=== PATIENT | female | born 1955 | race African-American/Black ===

== ENCOUNTER 2016-04-16 06:44 | Emergency (ER) | payer OTHER ==
[~2016-04-16] VITALS: Ht 180.3 cm; Wt 116.3 kg
[2016-04-16 07:22] VITALS: BP 147/70
== END 2016-04-16 08:16 | disposition home or self-care (01) ==
LOC: ER 06:44
DX: J02.9 Acute pharyngitis, unspecified (principal); M19.90 Unspecified osteoarthritis, unspecified site; J45.909 Unspecified asthma, uncomplicated; I10 Essential (primary) hypertension; Z88.6 Allergy status to analgesic agent

== ENCOUNTER 2016-05-08 06:57 | Emergency (ER) | payer OTHER ==
[~2016-05-08] VITALS: Ht 180.3 cm; Wt 115.2 kg
[2016-05-08 08:01] VITALS: BP 136/64
[2016-05-08] MEDS ORDERED: cefTRIAXone SOD 1,000 MG VL IM ONE (08:30)
[2016-05-08] MEDS ORDERED: LIDOCAINE 1% HCL (LOCAL ANESTH.) INJ 20ML MDV IJ ONE (08:30)
== END 2016-05-08 09:33 | disposition home or self-care (01) ==
LOC: ER 06:57
DX: J02.9 Acute pharyngitis, unspecified (principal); I10 Essential (primary) hypertension; J44.9 Chronic obstructive pulmonary disease, unspecified; M19.90 Unspecified osteoarthritis, unspecified site; J45.909 Unspecified asthma, uncomplicated; Z88.6 Allergy status to analgesic agent
CPT/HCPCS: 96372; 99283; J0696; J2001

== ENCOUNTER 2016-08-01 13:46 | Emergency (ER) | payer OTHER ==
[~2016-08-01] VITALS: Ht 180.3 cm; Wt 106.6 kg
[2016-08-01 18:38] VITALS: BP 100/63
== END 2016-08-01 18:57 | disposition home or self-care (01) ==
LOC: ER 13:46
DX: R21 Rash and other nonspecific skin eruption (principal); M19.90 Unspecified osteoarthritis, unspecified site; J44.9 Chronic obstructive pulmonary disease, unspecified; I10 Essential (primary) hypertension; Z88.8 Allergy status to other drugs, medicaments and biological substances

== ENCOUNTER 2016-08-15 06:42 | Emergency (ER) | payer OTHER ==
[~2016-08-15] VITALS: Ht 180.3 cm; Wt 114.8 kg
[2016-08-15 06:52] VITALS: BP 156/78
[2016-08-15] MEDS ORDERED: cefTRIAXone SOD 1,000 MG VL IM ONE (09:45)
[2016-08-15] MEDS ORDERED: methylPREDNISolone SOD SUCC 125 MG/2 ML VL IM ONE (09:45)
== END 2016-08-15 09:57 | disposition home or self-care (01) ==
LOC: ER 06:42
DX: J45.909 Unspecified asthma, uncomplicated (principal); J03.90 Acute tonsillitis, unspecified; M19.90 Unspecified osteoarthritis, unspecified site; J44.9 Chronic obstructive pulmonary disease, unspecified; I10 Essential (primary) hypertension
CPT/HCPCS: 71020; 96372; 99284; J0696; J2930

== ENCOUNTER 2016-09-10 06:32 | Emergency (ER) | payer OTHER ==
[~2016-09-10] VITALS: Ht 180.3 cm; Wt 112.9 kg
[2016-09-10 06:38] VITALS: BP 154/81
[2016-09-10] MEDS ORDERED: methylPREDNISolone SOD SUCC 125 MG/2 ML VL IM ONE (07:00)
[2016-09-10] MEDS ORDERED: methylPREDNISolone SOD SUCC 125 MG/2 ML VL ONE (07:03)
== END 2016-09-10 07:24 | disposition home or self-care (01) ==
LOC: ER 06:32
DX: R21 Rash and other nonspecific skin eruption (principal); J45.909 Unspecified asthma, uncomplicated; J44.9 Chronic obstructive pulmonary disease, unspecified; I10 Essential (primary) hypertension; M19.90 Unspecified osteoarthritis, unspecified site; Z88.6 Allergy status to analgesic agent
CPT/HCPCS: 96372; 99283; J2930

== ENCOUNTER 2017-07-01 05:39 | Emergency (ER) | payer OTHER ==
[~2017-07-01] VITALS: Ht 180.3 cm; Wt 113.4 kg
[2017-07-01] MEDS ORDERED: IPRATROPIUM BROM 0.5 MG/2.5ML INH SOL HHN ONE (06:15)
[2017-07-01] MEDS ORDERED: TERBUTALINE SULFATE 1 MG/ML 1ML VIAL SC ONE (06:15)
[2017-07-01] MEDS ORDERED: SODIUM CHLORIDE 0.9% 500 ML IV ONE (06:15)
[2017-07-01] MEDS ORDERED: ALBUTEROL SULF 2.5 MG/0.5ML(0.5%) NEB SOLN HHN ONE (06:15)
[2017-07-01] MEDS ORDERED: methylPREDNISolone SOD SUCC 125 MG/2 ML VL IV ONE (06:15)
[2017-07-01 06:56] LABS: Urine WBC None Seen /hpf (0 - 5)
[2017-07-01 07:10] LABS: Basophils # (auto) 0.1 uL; Basophils % (auto) 2.2 % (0.0-2.0); Eosinophils # (auto) 0.3 uL; Eosinophils % (auto) 4.8 % (0.0-7.0); Hematocrit 36.5 % (36.0-46.0); Hemoglobin 11.9 g/dL (12.2-16.2); Lymphocytes % (auto) 28.7 % (10.0-50.0); Mean Corpuscular Hgb Conc. 32.7 g/dL (32.0-36.0); Mean Corpuscular Volume 85.7 fL (80.0-100.0); Monocytes # (auto) 0.7 uL; Monocytes % (auto) 10.2 % (0.0-12.0); Neutrophils # (auto) 3.7 uL; Neutrophils % (auto) 54.1 % (37.0-80.0); Nucleated Red Blood Cells % 0.1 %; Platelet Count (auto) 215 10^3/uL (140-450); Red Blood Cells 4.26 10^6/uL (4.0-5.20); Red Cell Distribution Width 14.8 % (11.8-14.3); White Blood Cell 6.9 10^3/uL (4.4-10.8)
[2017-07-01 07:13] LABS: Albumin 2.8 g/dL (3.4-5.0); Anion Gap 7 (5-15); Blood Urea Nitrogen 12 mg/dL (7-18); Calcium 8.3 mg/dL (8.5-10.1); Carbon Dioxide 25 mmol/L (21-32); Chloride 109 mmol/L (98-107); Glucose 85 mg/dL (74-106); Potassium 3.9 mmol/L (3.5-5.1); Sodium 141 mmol/L (136-145)
[2017-07-01 07:13] LABS: Urine Bacteria NONE SEEN /hpf (None Seen); Urine Blood Negative /uL (Negative); Urine Specific Gravity 1.011 (1.001-1.035)
[2017-07-01 07:16] LABS: Alanine Aminotransferase 18 U/L (13-56); Aspartate Aminotransferase 13 U/L (15-37); BUN/Creatinine Ratio 14.6; GFR African American 91 mL/min; GFR Non-African American 75 mL/min
[2017-07-01 07:21] LABS: Alkaline Phosphatase 72 U/L (45-117); Bilirubin, Total 0.5 mg/dL (0.2-1.0); Total Protein 7.1 g/dL (6.4-8.2)
[2017-07-01 07:23] VITALS: BP 139/71
[2017-07-01 07:23] LABS: INR 0.92 (0.9-1.15); Partial Thromboplastin Time 27.7 sec (23.78-33.04); Prothrombin Time 9.9 sec (9.27-12.13)
== END 2017-07-01 08:06 | disposition home or self-care (01) ==
LOC: ER 05:39
DX: J45.901 Unspecified asthma with (acute) exacerbation (principal); M19.90 Unspecified osteoarthritis, unspecified site; J44.9 Chronic obstructive pulmonary disease, unspecified; I10 Essential (primary) hypertension; E66.01 Morbid (severe) obesity due to excess calories; Z87.891 Personal history of nicotine dependence; Z68.34 Body mass index [BMI] 34.0-34.9, adult
CPT/HCPCS: 36415; 71045; 80053; 81001; 83880; 84484; 85025; 85379; 85610; 85730; 94640; 94761; 96372; 96374; 99285; J2930; J3105; 93005

== ENCOUNTER 2018-02-07 06:04 | Emergency (ER) | payer OTHER ==
[~2018-02-07] VITALS: Ht 180.3 cm; Wt 113.1 kg
[2018-02-07 08:56] VITALS: BP 141/85
[2018-02-07] MEDS ORDERED: LACTULOSE 20Gm/30ML SOLN PO ONE (09:15)
== END 2018-02-07 09:25 | disposition home or self-care (01) ==
LOC: ER 06:11
DX: K59.00 Constipation, unspecified (principal); N28.1 Cyst of kidney, acquired; M19.90 Unspecified osteoarthritis, unspecified site; J44.9 Chronic obstructive pulmonary disease, unspecified; I10 Essential (primary) hypertension; Z87.891 Personal history of nicotine dependence; Z88.8 Allergy status to other drugs, medicaments and biological substances
CPT/HCPCS: 74018; 74176

== ENCOUNTER 2018-05-21 06:13 | Emergency (ER) | payer OTHER ==
[~2018-05-21] VITALS: Ht 180.3 cm; Wt 113.4 kg
[2018-05-21 07:24] VITALS: BP 154/75
[2018-05-21] MEDS ORDERED: LIDOCAINE 1% HCL (LOCAL ANESTH.) INJ 20ML MDV IJ ONE (07:45)
[2018-05-21] MEDS ORDERED: cefTRIAXone SOD 1,000 MG VL IM ONE (07:45)
[2018-05-21] MEDS ORDERED: methylPREDNISolone SOD SUCC 125 MG/2 ML VL IM ONE (07:45)
[2018-05-21] MEDS ORDERED: IPRATROPIUM BROM 0.5 MG/2.5ML INH SOL NEB ONE ×2 (07:45→08:00)
[2018-05-21] MEDS ORDERED: ALBUTEROL SULF 2.5 MG/0.5ML(0.5%) NEB SOLN NEB ONE ×2 (07:45→08:00)
== END 2018-05-21 08:40 | disposition home or self-care (01) ==
LOC: ER 06:13
DX: J44.1 Chronic obstructive pulmonary disease with (acute) exacerbation (principal); J20.9 Acute bronchitis, unspecified; J03.90 Acute tonsillitis, unspecified; M19.90 Unspecified osteoarthritis, unspecified site; I10 Essential (primary) hypertension; F17.200 Nicotine dependence, unspecified, uncomplicated
CPT/HCPCS: 71046; 94640; 96372; 99284; J0696; J2001; J2930; J7611; J7644

== ENCOUNTER 2018-09-30 05:44 | Emergency (ER) | payer OTHER ==
[~2018-09-30] VITALS: Ht 180.3 cm; Wt 113.4 kg
[2018-09-30 06:11] VITALS: BP 136/62
[2018-09-30] MEDS ORDERED: ALBUTEROL SULF 2.5 MG/0.5ML(0.5%) NEB SOLN NEB ONE (06:30)
[2018-09-30] MEDS ORDERED: IPRATROPIUM BROM 0.5 MG/2.5ML INH SOL NEB ONE (06:30)
[2018-09-30] MEDS ORDERED: methylPREDNISolone SOD SUCC 125 MG/2 ML VL IM ONE (07:00)
== END 2018-09-30 07:37 | disposition home or self-care (01) ==
LOC: ER 05:47
DX: J45.909 Unspecified asthma, uncomplicated (principal); F41.9 Anxiety disorder, unspecified; I10 Essential (primary) hypertension; Z87.891 Personal history of nicotine dependence
CPT/HCPCS: 71046; 94640; 96372; 99283; J2930; J7611; J7644; 94644

== ENCOUNTER 2018-12-27 06:58 | Emergency (ER) | payer OTHER ==
[~2018-12-27] VITALS: Ht 180.3 cm; Wt 113.4 kg
[2018-12-27] MEDS ORDERED: DexAMETHasone SOD PHOS 10MG/1ML VIAL INJ IM ONE (09:00)
[2018-12-27] MEDS ORDERED: ALBUTEROL SULF 2.5 MG/0.5ML(0.5%) NEB SOLN NEB ONE (09:00)
[2018-12-27] MEDS ORDERED: IPRATROPIUM BROM 0.5 MG/2.5ML INH SOL NEB ONE (09:00)
[2018-12-27 09:09] VITALS: BP 121/65
== END 2018-12-27 10:32 | disposition home or self-care (01) ==
LOC: ER 06:58
DX: J45.901 Unspecified asthma with (acute) exacerbation (principal); J44.9 Chronic obstructive pulmonary disease, unspecified; I10 Essential (primary) hypertension; Z87.891 Personal history of nicotine dependence
CPT/HCPCS: 71046; 93005; 94640; 96372; 99283; J1100; J7611; J7644

== ENCOUNTER 2019-01-12 05:46 | Emergency (ER) | payer OTHER ==
[~2019-01-12] VITALS: Ht 180.3 cm; Wt 115.2 kg
[2019-01-12] MEDS ORDERED: ALBUTEROL SULF 2.5 MG/0.5ML(0.5%) NEB SOLN HHN STA (06:02)
[2019-01-12] MEDS ORDERED: IPRATROPIUM BROM 0.5 MG/2.5ML INH SOL NEB ONE ×3 (06:15→07:30)
[2019-01-12] MEDS ORDERED: DexAMETHasone SOD PHOS 10MG/1ML VIAL INJ IM ONE (07:30)
[2019-01-12] MEDS ORDERED: ALBUTEROL SULF 2.5 MG/0.5ML(0.5%) NEB SOLN NEB ONE ×2 (07:30)
[2019-01-12 08:16] VITALS: BP 141/75
== END 2019-01-12 08:39 | disposition home or self-care (01) ==
LOC: ER 05:46
DX: J45.901 Unspecified asthma with (acute) exacerbation (principal); I10 Essential (primary) hypertension; R51 Headache; Z87.891 Personal history of nicotine dependence
CPT/HCPCS: 71046; 94640; 94644; 96372; 99285; J1100; J7611; J7644

== ENCOUNTER 2019-03-08 07:36 | Emergency (ER) | payer OTHER ==
[~2019-03-08] VITALS: Ht 180.3 cm; Wt 117.9 kg
[2019-03-08 09:03] LABS: Basophils # (auto) 0.2 uL; Basophils % (auto) 2.5 % (0.0-2.0); Eosinophils # (auto) 0.5 uL; Eosinophils % (auto) 6.9 % (0.0-7.0); Hematocrit 39.8 % (36.0-46.0); Hemoglobin 12.9 g/dL (12.2-16.2); Lymphocytes # (auto) 2.2 uL; Lymphocytes % (auto) 28.8 % (10.0-50.0); Mean Corpuscular Hemoglobin 27.9 pg (28.0-32.0); Mean Corpuscular Hgb Conc. 32.3 g/dL (32.0-36.0); Mean Corpuscular Volume 86.4 fL (80.0-100.0); Monocytes # (auto) 0.6 uL; Monocytes % (auto) 7.8 % (0.0-12.0); Nucleated Red Blood Cells % 0.1 %; Platelet Count (auto) 224 10^3/uL (140-450); Red Blood Cells 4.61 10^6/uL (4.0-5.20); Red Cell Distribution Width 14.6 % (11.8-14.3); White Blood Cell 7.5 10^3/uL (4.4-10.8)
[2019-03-08 09:22] LABS: Albumin 3.5 g/dL (3.4-5.0); Anion Gap 3 (5-15); Blood Urea Nitrogen 11 mg/dL (7-18); Calcium 8.9 mg/dL (8.5-10.1); Carbon Dioxide 29 mmol/L (21-32); Chloride 108 mmol/L (98-107); Glucose 94 mg/dL (74-106); Potassium 3.9 mmol/L (3.5-5.1); Sodium 140 mmol/L (136-145)
[2019-03-08 09:28] LABS: Alanine Aminotransferase 18 U/L (13-56); Alkaline Phosphatase 72 U/L (45-117); Aspartate Aminotransferase 17 U/L (15-37); BUN/Creatinine Ratio 12.6; Bilirubin, Total 0.7 mg/dL (0.2-1.0); GFR African American 84 mL/min; GFR Non-African American 70 mL/min; Total Protein 7.7 g/dL (6.4-8.2)
[2019-03-08 10:05] VITALS: BP 114/48
[2019-03-08 10:14] LABS: Urine Bacteria FEW /hpf (None Seen); Urine Blood Negative /uL (Negative); Urine WBC 1 /hpf (0 - 5)
== END 2019-03-08 11:58 | disposition home or self-care (01) ==
LOC: ER 07:36
DX: J20.9 Acute bronchitis, unspecified (principal); J44.9 Chronic obstructive pulmonary disease, unspecified; I10 Essential (primary) hypertension; F41.9 Anxiety disorder, unspecified; E78.5 Hyperlipidemia, unspecified; Z87.891 Personal history of nicotine dependence; Z88.6 Allergy status to analgesic agent
CPT/HCPCS: 36415; 71046; 80053; 81001; 83735; 84484; 85025; 93005

== ENCOUNTER 2019-03-24 06:03 | Emergency (ER) | payer OTHER ==
[~2019-03-24] VITALS: Ht 180.3 cm; Wt 118.0 kg
[2019-03-24 07:34] VITALS: BP 137/77
[2019-03-24] MEDS ORDERED: IPRATROPIUM BROM 0.5 MG/2.5ML INH SOL NEB ONE (08:00)
[2019-03-24] MEDS ORDERED: ALBUTEROL SULF 2.5 MG/0.5ML(0.5%) NEB SOLN NEB ONE (08:00)
[2019-03-24] MEDS ORDERED: cefTRIAXone SOD 1,000 MG VL IM ONE (08:00)
[2019-03-24] MEDS ORDERED: methylPREDNISolone SOD SUCC 125 MG/2 ML VL IM ONE (08:00)
== END 2019-03-24 08:30 | disposition home or self-care (01) ==
LOC: ER 06:03
DX: J03.90 Acute tonsillitis, unspecified (principal); J44.9 Chronic obstructive pulmonary disease, unspecified; M19.90 Unspecified osteoarthritis, unspecified site; E78.5 Hyperlipidemia, unspecified; I10 Essential (primary) hypertension
CPT/HCPCS: 94640; 96372; 99284; J0696; J2930; J7611; J7644

== ENCOUNTER 2024-02-21 09:13 | Emergency (ER) | payer OTHER, MEDICAID ==
[~2024-02-21] VITALS: Ht 180.3 cm; Wt 106.0 kg
[2024-02-21 09:20] VITALS: BP 152/61; PULSE 66; RESP 16; TEMP 98.1; O2SAT 98
--- NOTE | 2024-02-21 09:46 | DVH ---
CHEST RADIOGRAPH Indication: COUGH Technique: Frontal and lateral view of the chest was obtained Comparison: CHEST TWO VIEWS ROUTINE on DOS: 03/08/19 FINDINGS: Lines and Tubes: None Lungs: Clear Pleura: No effusion. No pneumothorax. Cardiomediastinal contours: Unremarkable Bones: Unremarkable IMPRESSION: No evidence of acute disease.
--- NOTE | 2024-02-21 10:02 | ED.PDOC ---
SOB-HPI HPI Comments A 69-YEAR-OLD FEMALE PRESENTS WITH A CHIEF COMPLAINT OF FLU-LIKE SYMPTOMS X 1 WEEK. PATIENT STATES THAT SHE IS EXPERIENCING COUGH, THROAT PAIN, AND NASAL CONGESTION. PATIENT REPORTS THAT SHE IS COUGHING UP GREEN SPUTUM. PATIENT DENIES ANY SOB. PATIENT HAS COPD. NO OTHER SYMPTOMS OR MODIFYING FACTORS PRESENT AT THIS TIME. PT IS ALERT, ORIENTATION X4 WITH NORMAL GAIT. Chief Complaint: Flu like Time Seen by MD: 09:54 Primary Care Provider: CASPER Sanchez notes: Nurses Notes, Medications, Allergies Information Source: Patient Mode of Arrival: Ambulatory Severity: Moderate Timing: Days Duration: Since onset Context: At Rest PE Risk Factors: None History of: COPD Prehospital treatment: None Modifying Factors: Nothing Associated Signs and Symptoms: Cough, Nasal Congestion, Sore Throat If cough with SOB: Productive, Green Past Medical History PAST MEDICAL HISTORY: Anxiety, Arthritis, Asthma, COPD, High Lipids, HTN Surgical History: Denies all surgeries MALTED MILK MASHER History: No Pertinent MALTED MILK MASHER History Family History Family History: Reviewed,noncontributory to illness Social History Smoker: Non-Smoker, Quit Greater Than 1 Year Alcohol: Rarely Drugs: Denies Drug Use Lives In: Home Constitutional: denies: chills, diaphoresis, fatigue, fever, malaise, sweats, weakness, others EENTM: reports: nose congestion, throat pain, throat swelling, voice changes; denies: blurred vision, double vision, ear bleeding, ear discharge, ear drainage, ear pain, ear ringing, eye pain, eye redness, hearing loss, mouth pain, mouth swelling, nasal discharge, nose bleeding, nose pain, photophobia, tearing, others Respiratory: reports: cough; denies: hemoptysis, orthopnea, SOB at rest, shortness of breath, SOB with excertion, stridor, wheezing, others Cardiovascular: denies: chest pain, dizzy spells, diaphoresis, Dyspnea on exertion, edema, irregular heart beat, left arm pain, lightheadedness, palpitations, PND, syncope, others Gastrointestinal: denies: abdomen distended, abdominal pain, blood streaked bowels, constipated, diarrhea, dysphagia, difficulty swallowing, hematemesis, melena, nausea, poor appetite, poor fluid intake, rectal bleeding, rectal pain, vomiting, others Genitourinary: denies: abnormal vagina bleeding, burning, dyspareunia, dysuria, flank pain, frequency, hematuria, incontinence, pain, , vagina discharge, urgency, others Neurological: denies: dizziness, fainting, headache, left sided numbness, left sided weakness, numbness, paresthesia, pre-existing deficit, right sided numbness, right sided weakness, seizure, speech problems, tingling, tremors, weakness, others Musculoskeletal: denies: back pain, gout, joint pain, joint swelling, muscle pain, muscle stiffness, neck pain, others Integumetry: denies: bruises, change in color, change in hair/nails, dryness, laceration, lesions, lumps, rash, wounds, others Allergic/Immunocompromised: denies: Difficulty Healing, Frequent Infections, Hives, Itching, others Hematologic/Lymphatic: denies: anemia, blood clots, easy bleeding, easy bruising, swollen glands, others Endocrine: denies: excessive hunger, excessive sweating, excessive thirst, excessive urination, flushing, intolerance to cold, intolerance to heat, unexplained weight gain, unexplained weight loss, others Psychiatric: denies: anxiety, bipolar disorder, depression, hopeless, panic disorder, schizophrenia, sleepless, suicidal, others All Other Systems: Reviewed and Negative Physical Exam General Appearance: No Apparent Distress, Normal HEENT: PERRL/EOMI, Pharyngeal Erythema (TONSILLAR SWELLING, NO EXUDATES. ), TMs Normal Neck: Full Range of Motion, Non-Tender, Normal, Normal Inspection Respiratory: Chest Non-Tender, Expiration, No Accessory Muscle Use, No Respiratory Distress, Rhonchi Cardiovascular: No Edema, No JVD, No Murmur, No Gallop, Normal Peripheral Pulses, Regular Rate/Rhythm Breast Exam: Deferred Gastrointestinal: No Organomegaly, Non Tender, No Pulsatile Mass, Normal Bowel Sounds, Soft Genitalia: Deferred Pelvic: Deferred Rectal: Deferred Extremities: No calf tenderness, Normal capillary refill, Normal inspection, Normal range of motion, Non-tender, No pedal edema Musculoskeletal : Apperance: Normal Neurologic: Alert, job estimator II-XII nml as Tested, No Motor Deficits, Normal Affect, Normal Mood, No Sensory Deficits Cerebellar Function: Normal Reflexes: Normal Skin: Dry, Normal Color, Warm Peripheral Pulses: 2+ carotid (R), 2+ carotid (L) Lymphatic: No Adenopathy Was a procedure done? Was a procedure done?: No Differential Dx Differential Diagnosis: Bronchitis, Pneumonia, Sinusitis, Allergic Rhinitis, Pharyngitis, URI X-Ray, Labs, Meds, VS Vital Signs Date Time Temp Pulse Resp B/P (MAP) Pulse Ox O2 Delivery O2 Flow Rate FiO2 02/21/24 09:20 98.1 66 16 152/61 (91) 98 Current Medications Medications (Trade) Dose Ordered Sig/Constance Route Start Time Stop Time Status Last Admin Ceftriaxone Sodium (Rocephin) 1,000 mg ONCE ONCE IM 02/21/24 10:00 02/21/24 10:01 DC 02/21/24 10:24 Methylprednisolone Sodium Succinate (Solu Medrol) 125 mg ONCE ONCE IM 02/21/24 10:00 02/21/24 10:01 DC 02/21/24 10:25 PATIENT: EZRA HESS ACCT: [id number] UNIT: [id number] : 1955 LOC: ER ROOM / BED: / AGE / SEX: 69 / F ADM STATUS: REG ER SERVICE 0 ORDERING PHYSICIAN: GALE HERRERA PROCEDURE(s): CXR2 - CHEST TWO VIEWS ROUTINE REASON: COUGH ORDER NUMBER(s): [id number], ACCESSION NUMBER(s): [id number] CHEST RADIOGRAPH Indication: COUGH Technique: Frontal and lateral view of the chest was obtained Comparison: CHEST TWO VIEWS ROUTINE on DOS: 03/08/19 FINDINGS: Lines and Tubes: None Lungs: Clear Pleura: No effusion. No pneumothorax. Cardiomediastinal contours: Unremarkable Bones: Unremarkable IMPRESSION: No evidence of acute disease. ATED BY: DAVIE AMAYA MD DICTATED DATE/TIME: 02/21/24941 SIGNED BY: DAVIE AMAYA MD SIGNED DATE/TIME: 02/21/24941 X-Ray, Labs, Meds, VS Comment EXTERNAL MEDICAL RECORDS REVIEWED: [NONE] INDEPENDENT HISTORIANS: [NONE] SOCIAL DETERMINANTS OF HEALTH: [NONE] LABS ORDERED: NONE REVIEWED AND INTERPRETED RESULTS: NONE IMAGING ORDERED: NONE TREATMENTS ORDERED: ROCEPHIN 1GM IM AND SOLUMEDROL 125MG IM PROCEDURES PERFORMED: NONE CRITICAL CARE TIME: NONE I HAVE DISCUSSED THE PATIENT WITH THE ATTENDING PHYSICIAN DR. ZHANG AND HE AGREES WITH THE PATIENT'S PLAN OF CARE AND DISPOSITION. GIVEN THE HISTORY AND PRESENT ILLNESS OF THE PATIENT, AFTER REVIEWING LABS, IMAGING, AND COURSE OF TREATMENT ADMINISTERED DURING THEIR ED VISIT, THERE IS LOW SUSPICION FOR RED FLAG FINDINGS. BASED ON HISTORY OF PRESENT ILLNESS, AND PHYSICAL EXAM, PATIENT WILL BE DISCHARGED HOME. DISCUSSED PLAN FOR DISCHARGE HOME WITH RX. MEDICATION WARNINGS GIVEN. SHARED DECISION MAKING: DISCUSSED WITH PATIENT THAT THEIR WORKUP WAS NORMAL. PATIENT INSTRUCTED TO FOLLOW UP WITH PRIMARY CARE PROVIDER IN 1-2 DAYS FOR RE- EVALUATION OF SYMPTOMS. PATIENT VERBALIZES UNDERSTANDING TO RETURN TO ED FOR NEW OR WORSENING SYMPTOMS OR IF FOLLOW UP WITH PCP CANNOT BE OBTAINED. PATIENT FEELS COMFORTABLE GOING HOME AT THIS TIME. ALL QUESTIONS ADDRESSED AT TIME OF DISCHARGE. Time of 1ST Reevaluation: 11:00 Reevaluation 1ST: Improved Patient Education/Counseling: Diagnosis, Treatment, Prognosis Family Education/Counseling: Diagnosis, Treatment, Need For Follow Up Medical Screening: No EMC Exist At This Time Departure 1 Departure Time of Disposition: 11:00 Impression: Primary Impression: Acute tonsillitis Qualified Codes: J03.90 - Acute tonsillitis, unspecified Additional Impression: COPD (chronic obstructive pulmonary disease) Qualified Codes: J44.9 - Chronic obstructive pulmonary disease, unspecified Disposition: HOME / SELF CARE / HOMELESS Condition: Stable Additional Instructions: FOLLOW UP WITH YOUR PCP IN 1-2 DAYS. RETURN TO THE ER IF YOUR SYMPTOMS WORSEN. e-Prescriptions Prednisone (Prednisone) 20 Mg Tab 60 MG PO DAILY, #15 MG Prov: GALE HERRERA 02/21/24 Promethazine-Dm (Promethazine Dm 6.25-15 mg/5Ml) 1 Keily Keily 5 ML PO TID, #180 ML Prov: GALE HERRERA 02/21/24 Penicillin V Potassium (Veetids) 500 Mg Tab 1 TAB PO QID, #28 TAB Prov: GALE HERRERA 02/21/24 Discharged With: Self Critical Care Note Critical Care Time?: No Stability Stability form required: No Heart Score Heart Score: Heart Score Response (Comments) Value History N/A 0 EKG N/A 0 Age N/A 0 Risk Factors N/A 0 Troponin N/A 0 Total 0 I personally scribed for GALE HERRERA ([email or web address]) on 02/21/24 at 10:01. Electronically submitted by Phuc Giron ([email or web address]). I personally scribed for GALE HERRERA ([email or web address]) on 02/21/24 at 10:13. Electronically submitted by Phuc Giron ([email or web address]). GALE HERRERA Feb 21, 2024 10:01
[2024-02-21] MEDS ORDERED: PENI500T2 PO (10:23)
[2024-02-21] MEDS ORDERED: PRED20TA2 PO (10:23)
[2024-02-21] MEDS ORDERED: PROM1SOL4 PO (10:23)
[2024-02-21] MEDS: cefTRIAXone SOD 1,000 MG VL IM ONE (10:24)
[2024-02-21] MEDS: methylPREDNISolone SOD SUCC 125 MG/2 ML VL IM ONE (10:25)
== END 2024-02-21 10:40 | disposition home or self-care (01) ==
LOC: ER 09:13
DX: J03.90 Acute tonsillitis, unspecified (principal); J44.9 Chronic obstructive pulmonary disease, unspecified; F41.9 Anxiety disorder, unspecified; M19.90 Unspecified osteoarthritis, unspecified site; I10 Essential (primary) hypertension; E78.5 Hyperlipidemia, unspecified; R05.9 Cough, unspecified; R07.0 Pain in throat; R09.81 Nasal congestion
CPT/HCPCS: 71046; 96372; 99284; J0696; J2919